=== PATIENT | male | born 1985 | race Caucasian/White ===

== ENCOUNTER 2023-11-11 09:50 | Emergency (ER) | payer BC ==
[~2023-11-11] VITALS: Ht 180.3 cm; Wt 109.1 kg
[2023-11-11 09:56] VITALS: TEMP 97.8
[2023-11-11 10:30] LABS: BASO # 0.1 K/mm3 (0.0-0.2); BASO % 0.8 % (0.0-2.0); EOS # 0.1 K/mm3 (0.0-0.7); EOS % 1.3 % (0.0-4.0); GRAN # 6.4 K/mm3 (1.4-6.5); GRAN % 64.7 % (42.2-75.2); HEMATOCRIT 50.9 % (42.0-52.0); HEMOGLOBIN 17.3 g/dl (13.5-18.0); LYMPH # 2.7 K/mm3 (1.2-3.4); LYMPH % 27.3 % (20.0-51.0); MEAN CELL VOLUME 88 fl (80.0-100.0); MEAN CORPUSCULAR HEMOGLOBIN 30 pg (27-31); MEAN CORPUSCULAR HGB CONC 34 g/dl (33.0-37.0); MEAN PLATELET VOLUME 9.4 fl (7.4-10.4); MONO # 0.5 K/mm3 (0.1-0.6); MONO % 5.3 % (1.7-9.3); PLATELET COUNT 307 K/mm3 (130-400); RED BLOOD COUNT 5.81 M/mm3 (4.20-5.60); REDCELL DISTRIBUTION WIDTH-CV 12.5 % (11.5-14.5)
[2023-11-11 10:43] LABS: ALANINE AMINOTRANSFERASE 24 U/L (0-55); ALBUMIN 4.6 gm/dL (3.5-5.0); ALKALINE PHOSPHATASE 116 U/L (40-150); ANION GAP 11 mmol/L (7-16); AST,SGOT 17 U/L (5-34); BILIRUBIN,TOTAL 0.4 mg/dL (0.2-1.2); BLOOD UREA NITROGEN 14 mg/dL (9-21); C-REACTIVE PROTEIN 0.39 mg/dL (0.00-0.50); CALCIUM 10.1 mg/dL (8.4-10.2); CARBON DIOXIDE 23 mmol/L (22-29); CHLORIDE 107 mmol/L (98-107); CREATININE, serum 0.97 mg/dL (0.72-1.25); GLUCOSE 131 mg/dL (70-99); LIPASE 21 U/L (8-78); POTASSIUM 4.1 mmol/L (3.5-4.5); SODIUM 141 mmol/L (136-145); TOTAL PROTEIN 8.5 gm/dL (6.2-8.1)
[2023-11-11 11:01] LABS: TROPONIN-I < 0.010 ng/mL (0.00-0.033)
[2023-11-11 11:32] LABS: COLLECTION METHOD CLEAN CATCH
[2023-11-11 11:47] LABS: SQUAMOUS EPITHELIAL 0-2 /hpf (0-10); URINE APPEARANCE Clear (CLEAR/HAZY); URINE BLOOD Negative (NEGATIVE); URINE COLOR Yellow (YELLOW); URINE GLUCOSE Negative (NEGATIVE); URINE KETONE Negative (NEGATIVE); URINE NITRATE Negative (NEGATIVE); URINE PROTEIN(semi-quant) Negative (NEGATIVE); URINE RBC None Seen /hpf (0-2); URINE UROBILINOGEN 0.2 E.U/dL (0.2-1.0)
[2023-11-11 12:14] VITALS: BP 152/107; PULSE 76
== END 2023-11-11 12:16 | disposition home or self-care (01) ==
LOC: COL.ER 09:50
PROVIDERS: Nurse Practitioner
DX: K80.20 Calculus of gallbladder without cholecystitis without obstruction (principal)
CPT/HCPCS: J1885; J2270; J2405; J7030; Q9967

== ENCOUNTER 2023-11-16 12:42 | Emergency (ER) | payer BC ==
[~2023-11-16] VITALS: Ht 180.3 cm; Wt 109.1 kg
[2023-11-16 12:47] VITALS: TEMP 97.4
[2023-11-16 13:37] LABS: BASO # 0.1 K/mm3 (0.0-0.2); BASO % 0.3 % (0.0-2.0); EOS % 0.1 % (0.0-4.0); GRAN # 12.8 K/mm3 (1.4-6.5); GRAN % 82.1 % (42.2-75.2); HEMATOCRIT 47.8 % (42.0-52.0); HEMOGLOBIN 16.6 g/dl (13.5-18.0); LYMPH # 1.6 K/mm3 (1.2-3.4); LYMPH % 10.5 % (20.0-51.0); MEAN CELL VOLUME 86 fl (80.0-100.0); MEAN CORPUSCULAR HEMOGLOBIN 30 pg (27-31); MEAN CORPUSCULAR HGB CONC 35 g/dl (33.0-37.0); MEAN PLATELET VOLUME 9.4 fl (7.4-10.4); MONO % 6.6 % (1.7-9.3); PLATELET COUNT 286 K/mm3 (130-400); RED BLOOD COUNT 5.59 M/mm3 (4.20-5.60)
[2023-11-16 13:49] LABS: ALBUMIN 4.4 gm/dL (3.5-5.0); BILIRUBIN,TOTAL 1.1 mg/dL (0.2-1.2); CALCIUM 9.8 mg/dL (8.4-10.2); CREATININE, serum 0.8 mg/dL (0.72-1.25); POTASSIUM 4.3 mmol/L (3.5-4.5); TOTAL PROTEIN 7.9 gm/dL (6.2-8.1)
[2023-11-16] MEDS ORDERED: NORCO 325 MG-51 TAB PO (15:02)
[2023-11-16] MEDS ORDERED: ZOFRAN ODT4 MG PO (15:02)
[2023-11-16 15:10] LABS: COLLECTION METHOD CLEAN CATCH
[2023-11-16] MEDS ORDERED: PRINZIDE 12.5 M1 TAB PO (15:11)
[2023-11-16 15:49] LABS: SQUAMOUS EPITHELIAL 0-2 /hpf (0-10); URINE APPEARANCE Clear (CLEAR/HAZY); URINE BLOOD TRACE-INTACT (NEGATIVE); URINE COLOR Yellow (YELLOW); URINE GLUCOSE Negative (NEGATIVE); URINE KETONE 2+ (NEGATIVE); URINE NITRATE Negative (NEGATIVE); URINE PROTEIN(semi-quant) Negative (NEGATIVE); URINE RBC 0-2 /hpf (0-2); URINE UROBILINOGEN 0.2 E.U/dL (0.2-1.0)
[2023-11-16 16:30] VITALS: BP 156/107; PULSE 78
== END 2023-11-16 16:38 | disposition home or self-care (01) ==
LOC: COL.ER 12:42
PROVIDERS: Physician Assistant
DX: R10.11 Right upper quadrant pain (principal); R10.13 Epigastric pain; R11.2 Nausea with vomiting, unspecified; D72.829 Elevated white blood cell count, unspecified; Z87.891 Personal history of nicotine dependence
CPT/HCPCS: J1885; J2405; Q9967

== ENCOUNTER → 2023-11-18 | Outpatient (CLI) | payer BC ==
[~2023-11-18] MED LIST: NORCO 325 MG-51 TAB PO; PRINZIDE 12.5 M1 TAB PO; ZOFRAN ODT4 MG PO
== END ==
LOC: COL.RAD 12:30
DX: K80.20 Calculus of gallbladder without cholecystitis without obstruction (principal)

== ENCOUNTER 2023-11-20 07:01 | Day surgery (SDC) | payer BC ==
[~2023-11-20] VITALS: Ht 180.3 cm; Wt 107.5 kg
[2023-11-20 07:41] VITALS: BP 140/98; PULSE 78; TEMP 98.2
--- NOTE | 2023-11-20 07:58 | NUR ---
BLOOD PRESSURE RECHECK DONE AT 0800 138/88.
[2023-11-20 10:08] VITALS: BP 143/90; PULSE 79; TEMP 98.3
[2023-11-20 10:23] VITALS: BP 140/90; PULSE 70
[2023-11-20 10:38] VITALS: BP 143/90; PULSE 76
--- NOTE | 2023-11-20 11:23 | NUR ---
1008-REPORT OBTAINED FROM LENCHO BRIONES. PATIENT ARRIV[place] [facility] [place]ART, ALERT AND ORIENTED ON ARRIVAL. VITAL SIGNS TAKEN, VSS. PATIENT REPORTS PAIN 1/10, STATES IS TOLERABLE. DENIES NAUSEA. INCISION SITES CDI. TOLERATING PO INTAKE WELL. UPDATE GIVEN TO SPOUSE VIA PHONE. 1023-VSS, PATIENT DENIES COMPLAINTS. 1045-DISCHARGE INSTRUCTIONS REVIEWED WITH PT, QUESTIONS INVITED. IV CATHETER DISCONTINUED, TIP INTACT. PRN PAIN MEDICATION GIVEN. PATIENT DRESSED INDEPENDENTLY. 1115-PATIENT DISCHARGED HOME TO [facility] VIA WHEELCHAIR, ACCOMPANIED BY SPOUSE. ALL BELONGINGS AND D/C PAPERWORK SENT WITH PT.
[2023-11-20 14:15] VITALS: BP 138/90; PULSE 78; TEMP 98.3
== END 2023-11-20 11:15 | disposition home or self-care (01) ==
LOC: SDCO 07:01
DX: K80.12 Calculus of gallbladder with acute and chronic cholecystitis without obstruction (principal); F17.220 Nicotine dependence, chewing tobacco, uncomplicated
CPT/HCPCS: J0690; J1100; J1885; J2405; J2704; J3010; J7120